=== PATIENT | female | born 1970 | race Caucasian/White ===

== ENCOUNTER 2017-05-13 19:44 | Emergency (ER) | payer OTHER ==
[2017-05-13 19:50] VITALS: RESP 18; TEMP 98.4
[2017-05-13] MEDS ORDERED: OXYCODONE/APAP 5/325 TAB PO ONE (20:01)
[2017-05-13] MEDS ORDERED: IBUPROFEN 200 MG TAB PO ONE (20:01)
--- NOTE | 2017-05-13 20:03 | EDPHY ---
H & P Smoking Status: Never smoked Time Seen by Provider: 05/13/17 19:55 HPI/ROS: CHIEF COMPLAINT: Acute right knee pain HISTORY OF PRESENT ILLNESS: 47-year-old female arrives via private vehicle complaining of acute right knee pain which occurred while she was walking her dogs, stepped in a divot, impacted her right knee and hyperflexed the right knee and felt a pop. She notes a divot deformity on the superior aspect of the knee and decreased ability to extend the knee. No paresthesia distally. PHYSICAL EXAM (Prior to examination, patient consented to physical exam, hands were washed and my usual and customary physical exam procedures followed) 1) GENERAL: Well-developed, well-nourished, alert and oriented. Appears uncomfortable . 2) HEAD: Normocephalic 3) HEENT: Pupils equal, round, reactive to light bilaterally. 4) LUNGS: Breathing comfortably. 5) MUSCULOSKELETAL: Exam of the right knee shows divot deformity in the location of the quadriceps tendon, patella baja . Compartments are soft. Exam of the left lower extremity reveals normal appearance, no soft tissue swelling, tender to palpation medial lateral aspect of the ankle with no visible deformity. No 5th metatarsal pain. No proximal tibia , fibula or fibular head pain. No knee pain. No foot pain. DP PT pulses present and brisk. 6) SKIN: intact 7) VASCULAR: DP,PT pulses and cap refill present and brisk distally DIFFERENTIAL DIAGNOSIS: in no particular order including but not limited to fracture, sprain, compartment syndrome, septic arthritis, DVT Procedure: Crutches indications for crutch use discussed with patient. Patient fitted for crutches by ER staff. Observed ambulating with crutches. I think the patient has the capacity to safely use crutches. Usual and customary crutch walking precautions provided Procedure: Splint #1 A left [place] boot splint was applied by ER cardiopulmonary technician and eeg tech. After application of the splint I returned and re-examined the patient. The splint was adequately immobilizing the joint and distal to the splint the patient's circulation and sensation were intact. Patient shows no signs of compartment syndrome. Was given orthopedic precautions. Procedure: Splint #2 Attempts at placing the patient immobilizer unsuccessful as she complained of exquisite pain. Subsequently the ER technicians constructed Orthoglass posterior splint. After application of the splint I returned and re- examined the patient. The splint was adequately immobilizing the joint and distal to the splint the patient's circulation and sensation were intact. Patient shows no signs of compartment syndrome. Was given orthopedic precautions. MEDICAL DECISION MAKING Serial evaluations performed on patient. I discussed the limitations of x-ray in diagnosis of knee pain and injury. At this time I do not think that emergent MRI is currently indicated. However, I have recommended follow-up with Orthopedic surgery Patient has previously seen Dr. Joselo Lopez and would like to follow up with him. Informed the patient that outpatient MRI may be indicated however I do not think it needs to occur on an emergent basis (Abhishek Alford) Constitutional: Initial Vital Signs Temperature (C) 36.9 C 05/13/17 19:48 Heart Rate 76 05/13/17 19:48 Respiratory Rate 18 05/13/17 19:48 Blood Pressure 119/96 H 05/13/17 19:48 O2 Sat (%) 97 05/13/17 19:48 O2 Delivery Mode Room Air Allergies/Adverse Reactions: gentamicin [Gentamicin] Allergy (Verified 05/27/15 07:20) Home Medications: Medication Instructions Recorded Sertraline HCl 05/27/15 Hydrocodone/APAP 5/325 [[place] 1 tab PO Q6 PRN #15 tab 05/13/17 5/325 (RX)] Ibuprofen [Motrin (*)] 800 mg PO Q6 #15 tab 05/13/17 MDM/Departure - MDM Imaging Results: Images reviewed by myself (Abhishek Alford) Medications Given: Discontinued Medications Hydrocodone Bitart/Acetaminophen ([place] 5/325mg Prepack#6) 1 btl TAKEHOME EDNOW ONE Stop: 05/13/17 21:29 Last Admin: 05/13/17 21:31 Dose: 1 btl Ibuprofen (Motrin) 800 mg PO EDNOW ONE Stop: 05/13/17 20:02 Last Admin: 05/13/17 20:05 Dose: 800 mg Oxycodone/Acetaminophen (Percocet 5/325) 1 tab PO EDNOW ONE Stop: 05/13/17 20:02 Last Admin: 05/13/17 20:05 Dose: 1 tab ED Course/Re-evaluation: The patient was evaluated and managed by the physician contact center assistant. I have reviewed this chart and I agree with the findings and plan of care as documented , as indicated by my signature. I am the secondary supervising physician. ( Delmis Goss) - Depart Disposition: Home, Routine, Self-Care Clinical Impression: Rupture of right quadriceps tendon Qualifiers: Encounter type: initial encounter Qualified Code(s): S76.111A - Strain of right quadriceps muscle, fascia and tendon, initial encounter Condition: Good Instructions: Hydrocodone/Acetaminophen (By mouth), Knee Immobilizer (ED), Tendon Rupture (ED) Additional Instructions: Return to the ER immediately if you experience discoloration, have worsening pain, numbness, tingling, or any other symptoms that concern you. If you received x-rays in the emergency department today, be advised, that ligamentous , tendon, muscular, and other non-bony injury cannot be fully ruled out. Try to keep your affected extremity elevated above the level of your chest, and keep cold packs on the affected area, for the next 48 hours. Prescriptions: Hydrocodone/APAP 5/325 [[place] 5/325 (RX)] 1 tab PO Q6 PRN #15 tab PRN Reason: Pain, Severe Ibuprofen [Motrin (*)] 800 mg PO Q6 #15 tab Referrals: Joselo Lopez MD [Medical Doctor] - 05/15/17
[2017-05-13] MEDS ORDERED: HYDROCOD/APAP 5/325 PREPACK#6 BTL TAKEHOME ONE (21:28)
[2017-05-13 21:39] VITALS: BP 120/80; PULSE 70; O2SAT 94
== END 2017-05-13 21:37 | disposition home or self-care (01) ==
DX: S76.111A Strain of right quadriceps muscle, fascia and tendon, initial encounter (principal); X50.9XXA Other and unspecified overexertion or strenuous movements or postures, initial encounter; Y99.8 Other external cause status; Y93.K1 Activity, walking an animal
CPT/HCPCS: L4386

== ENCOUNTER 2017-05-18 18:50 | Inpatient (IN) | payer OTHER ==
[2017-05-18] MEDS ORDERED: HYDROmorphONE/DILAUDID 1 MG/ML SYR IVP ONE (19:23)
--- NOTE | 2017-05-18 19:27 | EDPHY ---
H & P Stated Complaint: [facility] Time Seen by Provider: 05/18/17 19:04 HPI/ROS: CHIEF COMPLAINT: Right leg pain HISTORY OF PRESENT ILLNESS: The patient is a 47-year-old female who is postop day 0 from a repaired right quadriceps tendon rupture. Her surgery was done at the surgical center at [facility] by Dr. Bueno. She awoke foot from anesthesia around 4:00 p.m. and since then has had 5 doses of fentanyl, 2 doses of Valium and 10 mg of oxycodone. Her pain remains uncontrolled. They sent her here for admission for pain control. REVIEW OF SYSTEMS: Constitutional: denies: chills, fever, recent illness, recent injury EENTM: denies: blurred vision, double vision, nose congestion Respiratory: denies: cough, shortness of breath Cardiac: denies: chest pain, irregular heart rate, lightheadedness, palpitations Gastrointestinal/Abdominal: denies: abdominal pain, diarrhea, nausea, vomiting, blood streaked stools Genitourinary: denies: dysuria, frequency, hematuria, pain Musculoskeletal: See HPI Skin: denies: lesions, rash, jaundice, bruising Neurological: denies: headache, numbness, paresthesia, tingling, dizziness, weakness Hematologic/Lymphatic: denies: blood clots, easy bleeding, easy bruising Immunologic/allergic: denies: HIV/AIDS, transplant EXAM: GENERAL: Well-appearing, well-nourished and in no acute distress. HEAD: Atraumatic, normocephalic. EYES: Pupils equal round and reactive to light, extraocular movements intact, sclera anicteric, conjunctiva are normal. ENT: TMs normal, nares patent, oropharynx clear without exudates. Moist mucous membranes. NECK: Normal range of motion, supple without lymphadenopathy or JVD. LUNGS: Breath sounds clear to auscultation bilaterally and equal. No wheezes rales or rhonchi. HEART: Regular rate and rhythm without murmurs, rubs or gallops. ABDOMEN: Soft, nontender, normoactive bowel sounds. No guarding, no rebound. No masses appreciated. BACK: No CVA tenderness, no spinal tenderness, step-offs or deformities EXTREMITIES: Right leg pain, dressing and brace in place, NEUROLOGICAL: Cranial nerves II through XII grossly intact. Normal speech, normal gait. 5/5 strength, normal movement in all extremities, normal sensation PSYCH: Normal mood, normal affect. SKIN: Warm, dry, normal turgor, no visible rashes or lesions. Source: Patient Exam Limitations: No limitations - Personal History LMP (Females 10-55): 15-21 Days Ago Current Tetanus Diphtheria and Acellular Pertussis (TDAP): Yes Tetanus Vaccine Date: < 10 YEARS - Medical/Surgical History Hx Asthma: No Hx Chronic Respiratory Disease: No Hx Diabetes: No Hx Cardiac Disease: No Hx Renal Disease: No Hx Cirrhosis: No Hx Alcoholism: No Hx HIV/AIDS: No Hx Splenectomy or Spleen Trauma: No Other PMH: orthopedic surgeries, ANXIETY - Social History Smoking Status: Never smoked Constitutional: Initial Vital Signs Temperature (C) 37.1 C 05/18/17 18:56 Heart Rate 61 05/18/17 18:56 Respiratory Rate 16 05/18/17 18:56 Blood Pressure 142/81 H 05/18/17 18:56 O2 Sat (%) 93 05/18/17 18:56 O2 Delivery Mode Room Air Allergies/Adverse Reactions: gentamicin [Gentamicin] Allergy (Verified 05/27/15 07:20) Home Medications: Medication Instructions Recorded Sertraline HCl [Zoloft 50mg (*)] 50 mg PO HS 05/27/15 oxyCODONE IR [Oxycodone Ir (*)] 5 mg PO Q6H PRN 05/18/17 Acetaminophen [Tylenol 325mg (*)] 650 mg PO Q6HRS PRN #0 tab 05/19/17 Ibuprofen [Motrin (*)] 600 mg PO Q6HRS PRN #0 tab 05/19/17 Sennosides/Docusate Sodium 1 - 2 tab PO BID tab 05/19/17 [Senokot-S] Medical Decision Making ED Course/Re-evaluation: 7:20 p.m. I discussed the case with Dr LINDA Torres who will admit to the medical service likely on a DESK INTERVIEWER. Differential Diagnosis: Partial list of the Differential diagnosis considered include but were not limited to; leg pain, hematoma and although unlikely based on the history and physical exam, I also considered infection, foreign body, fracture. - Data Points Medications Given: Discontinued Medications Hydromorphone HCl (Dilaudid) 1 mg IVP EDNOW ONE Stop: 05/18/17 19:24 Last Admin: 05/18/17 19:30 Dose: 1 mg Hydromorphone HCl (Dilaudid Hospice Physician) 0 mg IV PRN PRN; Protocol PRN Reason: Pain, Severe Unable to Take PO Stop: 05/28/17 19:56 Last Admin: 05/19/17 08:30 Dose: 6 mg Sodium Chloride (Ns) 500 mls @ 1,000 mls/hr IV EDNOW ONE PRN Reason: Protocol Stop: 05/18/17 20:25 Last Admin: 05/18/17 19:57 Dose: 500 mls Oxycodone/Acetaminophen (Percocet 5/325) 1 - 2 tab PO Q4HRS PRN PRN Reason: Pain, Severe Able to Take PO Stop: 05/29/17 09:02 Last Admin: 05/19/17 09:40 Dose: 2 tab Senna/Docusate Sodium (Senokot-S) 1 - 2 tab PO BID FRANDY PRN Reason: Protocol Stop: 11/15/17 08:59 Last Admin: 05/19/17 07:54 Dose: 2 tab Sertraline HCl (Zoloft) 50 mg PO HS FRANDY Stop: 11/14/17 22:29 Last Admin: 05/18/17 23:51 Dose: 50 mg Departure - Departure Disposition: [facility] Clinical Impression: Pain managed using patient-controlled analgesia (DESK INTERVIEWER) Rupture of right quadriceps tendon Qualifiers: Encounter type: subsequent encounter Qualified Code(s): S76.111D - Strain of right quadriceps muscle, fascia and tendon, subsequent encounter Condition: Fair
[2017-05-18] MEDS ORDERED: ACETAMINOPHEN 325 MG TAB PO PRN (19:56)
[2017-05-18] MEDS ORDERED: ONDANSETRON 4 MG/2 ML VIAL IVP PRN (19:56)
[2017-05-18] MEDS ORDERED: ONDANSETRON DISINTEGRATING 4 MG TAB PO PRN (19:56)
[2017-05-18] MEDS ORDERED: NS 500 ML IV ONE (19:56)
[2017-05-18] MEDS ORDERED: NALOXONE HCL 0.4 MG/ML INJ IVP PRN (19:57)
[2017-05-18 21:14] VITALS: RESP 16
[2017-05-18] MEDS ORDERED: LACTULOSE 20 GM/30 ML UDCUP PO PRN (22:18)
[2017-05-18] MEDS ORDERED: POLYETHYLENE GLYCOL 3350 17 GM PKT PO PRN (22:18)
[2017-05-18] MEDS ORDERED: BISACODYL 10 MG SUPP PR PRN (22:18)
[2017-05-18] MEDS ORDERED: MAGNESIUM HYDROXIDE 30 ML UDCUP PO PRN (22:18)
[2017-05-18] MEDS ORDERED: SERTRALINE HCL 50 MG TAB PO SCH (22:30)
--- NOTE | 2017-05-18 23:01 | GHP ---
[f rep st] HISTORY AND PHYSICAL DATE OF ADMISSION: 05/18/2017 CHIEF COMPLAINT: Pain of the right lower extremity. HISTORY OF PRESENT ILLNESS: A 47-year-old female with limited past medical history beyond bilateral shoulder repairs from swimming injuries, who presents after a traumatic quadriceps tendon rupture 7 2 hours prior to presentation. Patient was taken to the operating room for repair of her quadriceps tendon today, and postoperatively they were unable to establish appropriate pain control. The ayana ent was transferred to the emergency department for evaluation. Upon our evaluation, patient denies any chest pain, palpitations, shortness of breath. Has had mild constipation at home on oral pain medications that she has been treating with shakes and oral const ipation meds. Denies any dysuria. Has bilateral leg pain. Apparently, has a fracture of her left ankle and on the right side a quadriceps tendon tear. Patient has a history of difficult to control pain with her bilateral shoulder surgeries in the past. When her blocks wore off she had terrible pain requiring IV medications in the urgent care. PAST MEDICAL HISTORY: Bilateral shoulder repairs from swim injury. SOCIAL HISTORY: Negative for tobacco. Rare alcohol. No illicit drugs or marijuana. FAMILY HISTORY: Negative for heart disease or lung disease. REVIEW OF SYSTEMS: A 10-point review of systems is negative with the exception of that reported in the HPI. PHYSICAL EXAMINATION: VITAL SIGNS: Blood pressure 140/92, heart rate 61, respiratory rate 16, 95% on 4 L, 36.9. GENERAL: This is a healthy-appearing middle-aged female, uncomfortable in bed. HEEN T: Exam is notable for moist mucous membranes. Eye exam is negative for any icterus. CARDIAC: Pa tient is regular rate and rhythm. No murmurs, gallops, or rubs. PULMONARY: Clear to auscultation bilaterally. GASTROINTESTINAL: Positive bowel sounds. ABDOMEN: Soft and nontender. MUSCULOSKELE KATYA: Her postoperative leg is in a brace. SKIN: Exam is negative for any rashes. NEUROLOGIC: Falguni stewart is alert and oriented x3. PSYCHIATRIC: She is pleasant and cooperative on interview and examinat ion. DATA: Ankle x-ray on the left which I personally reviewed and interpreted, shows a chip fracture on the lateral aspect of her ankle. Laboratory: Historically, patient has normal hematocrit and platelet count. ASSESSMENT AND PLAN: This is a 47-year-old female, presenting post quadriceps tendon repair with un controlled pain. 1. Acute surgical repair of a quadriceps tendon. Will place the patient on a Dilaudid TRANSCRIPTION TYPIST overnigh t with plan to transition to IV pushes and oral pain medications in the morning. Will write a bowel protocol. She had preoperative constipation on lower dose narcotics. Order PT/OT for appropriate evaluation and recommendations for safe disposition. 2. Left callus chip fracture. Apparently, this is not requiring operative intervention. Will cont inue to follow orthopedic recs for weightbearing on the left leg, and again recruit PT/OT prophylaxi s. Will hold the Lovenox as she is acutely postop. Place Mary Huang. DIET: Regular. DISPOSITION: I expect greater than 2 midnights as the patient is requiring a TRANSCRIPTION TYPIST for pain control. Not optimistic that we will have her on oral medications by tomorrow. I discussed the case with the emergency room physician. Patient will be triaged to the medical-surg [facility] floor for care. /[id number]/MODL
[2017-05-18] MEDS: HYDROmorphONE/DILAUDID 6 MG/30 ML PCA IV PRN (23:26)
[2017-05-19 05:07] LABS: % IMMATURE GRANULYOCYTES 0.4 % (0.0-1.1); ABSOLUTE IMMATURE GRANULOCYTES 0.06 10^3/uL (0.00-0.10); ADD DIFF? NO; ADD MORPH? NO; ADD SCAN? NO; ATYPICAL LYMPHOCYTE FLAG 0 (0-99); FRAGMENT RBC FLAG 0 (0-99); HEMATOCRIT 40.4 % (38.0-47.0); HEMOGLOBIN 14.2 g/dL (12.6-16.3); LEFT SHIFT FLG 0 (0-99); LIPEMIA HEMOLYSIS FLAG 90 (0-99); MEAN CELL HEMOGLOBIN 32.9 pg (27.9-34.1); MEAN CELL HEMOGLOBIN CONCENTR. 35.1 g/dL (32.4-36.7); MEAN CELL VOLUME 93.7 fL (81.5-99.8); PLATELET CLUMPS FLAG 10 (0-99); PLATELET COUNT 278 10^3/uL (150-400); RED BLOOD CELL COUNT 4.31 10^6/uL (4.18-5.33); RED CELL DISTRIBUTION WIDTH 11.4 % (11.5-15.2)
[2017-05-19 07:23] VITALS: TEMP 98.2
[2017-05-19] MEDS: HYDROmorphONE/DILAUDID 6 MG/30 ML PCA IV PRN (08:30)
[2017-05-19] MEDS ORDERED: SENNOSIDES/DOCUSATE SODIUM TAB PO SCH (09:00)
[2017-05-19] MEDS ORDERED: OXYCODONE/APAP 5/325 TAB PO PRN (09:03)
[2017-05-19] MEDS ORDERED: IBUPROFEN 600 MG TAB PO PRN (09:03)
[2017-05-19 10:00] VITALS: BP 104/60; PULSE 61; O2SAT 92
--- NOTE | 2017-05-19 17:29 | GDS ---
[f rep st] DISCHARGE SUMMARY DISCHARGE DIAGNOSES: Include: 1. Subacute ruptured quadriceps tendon, status post acute repair. 2. Left talus chip fracture of the left ankle. HISTORY OF PRESENT ILLNESS: This is a 47-year-old female admitted for pain control postoperatively from a traumatic quadriceps tendon rupture and repair. For details of patient's initial presentatio n, please see the history and physical dated 05/18/2017. CONSULTATIVE SERVICES: None. PROCEDURES: None. HOSPITAL COURSE: (By issue) Acute quadriceps tendon rupture, status post repair. Patient was admit [facility] for pain control. She was placed on a Dilaudid REGULATOR PIN INSERTER overnight and transitioned to oral pain medi cations which included oxycodone, Tylenol, and ibuprofen. On the day of disposition, the patient zhao d good pain control with this 3-drug oral regimen and will be discharged home with its continued use . Patient will resume recommended weightbearing limitations by her surgeon and postoperative follow up. MEDICATIONS AT THE TIME OF TRANSFER: Please reference med rec printed on 05/19/2017. FOLLOWUP APPOINTMENTS: Include with her outpatient orthopedic surgeon in the next 1-2 weeks, as wel l as her outpatient physical therapy. PENDING STUDIES: At the time of this dictation, none. TIME SPENT: I spent greater than 30 minutes in the planning and coordination of this discharge. /[id number]/MODL
--- NOTE | 2017-05-20 09:02 | ASDISCHSUM ---
Discharge Information Plan Status:Home with No Needs Medically Cleared to Leave: Discharge Date:05/19/2017 12:37 PM CM D/C Disposition:Home, Routine, Self-Care ADT D/C Disposition:Home, Routine, Self-Care Projected Discharge Date:05/19/2017 12:37 PM Transportation at D/C: Discharge Delay Reason: Follow-Up Date:05/19/2017 12:37 PM Discharge Slot: Final Diagnosis: Placement Information Patient Contact Information Contact Name:AYE Relationship: Address:[address] [place] [address] City:[facility] Phone: [facility]/Zip Code:[place] [address] Email: Financial Information Financial Class:HMO and PPO Plans Primary Plan Desc:[employer] Primary Plan Number:[id number] Secondary Plan Desc: Secondary Plan Number: Assessment Information Intervention Information
== END 2017-05-19 12:37 | disposition home or self-care (01) | DRG 948 ==
LOC: EDUNIT# → OBSVTOIN 19:28 → F3N 20:08
PROVIDERS: ADMIT Hospitalist; ATTEND Hospitalist
DX: G89.18 Other acute postprocedural pain (principal); M79.604 Pain in right leg; S92.102D Unspecified fracture of left talus, subsequent encounter for fracture with routine healing
CPT/HCPCS: 96374; 97161-GP; 97166-GO; J1170

== ENCOUNTER → 2017-11-03 | Outpatient (CLI) | payer BC | LOC: CIMAGING 07:58 | PROVIDERS: ATTEND Internal Medicine | DX: Z12.31 Encounter for screening mammogram for malignant neoplasm of breast (principal) ==

== ENCOUNTER → 2017-11-09 | Outpatient (CLI) | payer BC | LOC: BMCIMAGING 11:27 | PROVIDERS: ATTEND Internal Medicine | DX: R92.8 Other abnormal and inconclusive findings on diagnostic imaging of breast (principal) ==

== ENCOUNTER → 2018-11-15 | Outpatient (CLI) | payer BC | LOC: CIMAGING 07:32 | PROVIDERS: ATTEND Internal Medicine | DX: Z12.31 Encounter for screening mammogram for malignant neoplasm of breast (principal) ==